=== PATIENT | female | born 1970 ===

== ENCOUNTER 2024-12-05 20:11 | Emergency (ER) | payer OTHER ==
[2024-12-05] MEDS ORDERED: Sodium Chloride 0.9% 10 ML Syringe FLUSH PRN (20:18)
[2024-12-05 20:33] LABS: BASOPHILS ABSOLUTE AUTO 0.01 K/uL (0.00-0.20); BASOPHILS PERCENT AUTO 0.1 % (0.0-2.0); EOSINOPHILS ABSOLUTE AUTO 0.02 K/uL (0.00-0.50); EOSINOPHILS PERCENT AUTO 0.2 % (0.0-5.0); HEMATOCRIT 44.6 % (34.0-46.0); HEMOGLOBIN 15.7 g/dL (11.7-15.5); IMMATURE GRAN ABSOLUTE AUTO 0.02 10^3/uL (0.00-0.04); IMMATURE GRAN PERCENT AUTO 0.2 % (0.0-0.4); LYMPHOCYTES ABSOLUTE AUTO 0.33 K/uL (0.50-3.50); LYMPHOCYTES PERCENT AUTO 2.7 % (10.0-50.0); MEAN CORPUSCULAR HEMOGLOBIN 29.9 pg (28.2-33.3); MEAN CORPUSCULAR HGB CONC 35.2 g/dL (31.7-36.0); MONOCYTES PERCENT AUTO 1.7 % (2.0-14.0); NEUTROPHILS ABSOLUTE AUTO 11.54 K/uL (1.40-7.00); NEUTROPHILS PERCENT AUTO 95.1 % (45.0-80.0); PLATELET COUNT,PLT 206 K/uL (150-350); RED BLOOD CELL COUNT 5.25 M/uL (3.77-5.09); RED CELL DISTRIBUTION WIDTH 12.1 % (11.2-14.1); WHITE BLOOD CELL COUNT,WBC 12.1 K/uL (4.0-10.2)
[2024-12-05] MEDS: Sodium Chloride 0.9% 1,000 ML IV ONE (20:39)
[2024-12-05] MEDS: Ondansetron 4 MG/2 ML SDV IVPUSH ONE (20:41)
[2024-12-05 20:47] LABS: ALBUMIN 4.3 g/dL (3.4-5.0); ANION GAP 9.4 meq/L (7-15); BILIRUBIN TOTAL 0.5 mg/dL (0.2-1.0); CALCIUM 8.8 mg/dL (8.5-10.1); CARBON DIOXIDE,CO2 26.6 mmol/L (21.0-32.0); CREATININE 0.69 mg/dL (0.51-1.17); EST CRCL DRUG DOSING (CG) 84.85 mL/min; MAGNESIUM 1.8 mg/dL (1.8-2.4); POTASSIUM,K 4.1 mmol/L (3.5-5.1)
[2024-12-05] MEDS: Ketorolac 15 MG/ML SDV IVPUSH ONE (20:48)
[2024-12-05] MEDS: Take Home: Ondansetron 4 MG Tab.DIS, 5 Tab Pack PO ONE (21:56)
== END 2024-12-05 20:53 | disposition home or self-care (01) ==
LOC: LL.ED 20:11
DX: K52.9 Noninfective gastroenteritis and colitis, unspecified (principal); F17.210 Nicotine dependence, cigarettes, uncomplicated; Z79.899 Other long term (current) drug therapy; Z88.5 Allergy status to narcotic agent
CPT/HCPCS: 36415; 80053; 83735; 85025; 96374; 96375; 99284-25; J1885; J2405; J7030; Q0162